=== PATIENT | male | born 1960 | race African-American/Black ===

== ENCOUNTER 2024-01-30 10:33 | Emergency (ER) | payer SELFPAY ==
[~2024-01-30] VITALS: Ht 172.7 cm; Wt 74.7 kg
[2024-01-30] MEDS: TETanus/Pertussis (Acell)/Diphther VAC/PF (Tdap-Adult) 0.5ml syringe IMVAC ONE (12:08)
[2024-01-30 12:21] VITALS: BP 116/67; PULSE 67; RESP 18; TEMP 99.1; O2SAT 98
== END 2024-01-30 12:22 | disposition home or self-care (01) ==
LOC: ER 10:35
DX: S61.235A Puncture wound without foreign body of left ring finger without damage to nail, initial encounter (principal); Z11.3 Encounter for screening for infections with a predominantly sexual mode of transmission; W45.8XXA Other foreign body or object entering through skin, initial encounter; Y93.89 Activity, other specified; Y92.89 Other specified places as the place of occurrence of the external cause; Y99.8 Other external cause status
CPT/HCPCS: 90471; 90715; 99283